=== PATIENT | female | born 1960 ===

== ENCOUNTER 2020-07-26 14:00 | Outpatient (RCR) | payer BC, SELFPAY ==
[2020-07-26 14:03] VITALS: BMI 39.9
[2020-07-26 14:28] VITALS: BMI 39.9
== END 2020-10-16 07:06 | disposition home or self-care (01) ==
LOC: ANHDMC 14:00
PROVIDERS: PCP Internal Medicine; Visit Provider Internal Medicine Endocrinology, Diabetes & Metabolism
DX: E11.65 Type 2 diabetes mellitus with hyperglycemia (principal); Z71.3 Dietary counseling and surveillance; Z71.89 Other specified counseling
CPT/HCPCS: 97802; G0108